=== PATIENT | female | born 1950 | race Caucasian/White ===

== ENCOUNTER 2021-10-29 18:13 | Emergency (ER) | payer OTHER ==
[2021-10-29] MEDS ORDERED: Ketorolac Tromethamine 30 MG/ML VIAL ONE (19:46)
== END 2021-10-29 20:30 | disposition home or self-care (01) ==
LOC: ERS 18:13
DX: M25.562 Pain in left knee (principal); E78.5 Hyperlipidemia, unspecified; Z79.899 Other long term (current) drug therapy
CPT/HCPCS: 96372; J1885

== ENCOUNTER 2024-01-14 09:15 | Outpatient (CLI) | payer MEDICARE | END 2024-01-14 09:16 | disposition home or self-care (01) | LOC: BICMAMMO 09:15 | PROVIDERS: ATTEND Student in an Organized Health Care Education/Training Program | DX: Z13.820 Encounter for screening for osteoporosis (principal); Z78.0 Asymptomatic menopausal state; M85.89 Other specified disorders of bone density and structure, multiple sites | CPT/HCPCS: 77080 ==